=== PATIENT | male | born 1970 | race Caucasian/White ===

== ENCOUNTER 2018-06-11 14:38 | Emergency (ER) | payer OTHER ==
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
[2018-06-11 16:03] VITALS: BP 126/68
== END 2018-06-11 16:03 | disposition home or self-care (01) ==
DX: S00.85XA Superficial foreign body of other part of head, initial encounter (principal); W34.10XA Accidental malfunction from unspecified firearms or gun, initial encounter; I10 Essential (primary) hypertension; Y92.59 Other trade areas as the place of occurrence of the external cause